=== PATIENT | male | born 1975 | race Caucasian/White ===

== ENCOUNTER 2019-02-04 07:50 | Emergency (ER) | payer SELFPAY ==
[~2019-02-04] VITALS: Wt 72.0 kg
[2019-02-04] MEDS ORDERED: SOD CHLORIDE 0.9% 1,000 ML IV STA (07:56)
[2019-02-04] MEDS ORDERED: PHENYLephrine 0.25% 15 ML NAS SPRAY NASAL ONE (08:00)
[2019-02-04] MEDS ORDERED: LORAZEPAM 2 MG INJ IV ONE ×2 (08:00→09:00)
--- NOTE | 2019-02-04 09:54 | ERD ---
ER Documentation Chief Complaint Chief Complaint BIB RA, EPISTAXSIS/ TREMORS X THIS AM S/P DRINKING LAST NIGHT HPI 43-year-old male presents by paramedics complaining of epistaxis. Patient states that he drinks heavily. His last drink he reports being last night. He began having shaking and tremors this morning which was then followed by pain atraumatic and nosebleed. He called the paramedics after the nose started to bleed. I have reviewed the emergency management program specialist pre-hospital care. Pre-hospital vital signs were reviewed. Pre-hospital diagnostic tests were reviewed. Upon arrival, patient is a very poor historian providing only limited insight. He is shaky and tremulous. He reports no other drug use. ROS All systems reviewed and are negative except as per history of present illness. PMhx/Soc Medical and Surgical Hx: pt denies Medical Hx, pt denies Surgical Hx History of Surgery: No Anesthesia Reaction: No Hx Neurological Disorder: No Hx Respiratory Disorders: No Hx Cardiac Disorders: No Hx Psychiatric Problems: No Hx Miscellaneous Medical Probl: No Hx Alcohol Use: Yes (EVERDAY) Hx Substance Use: No Hx Tobacco Use: Yes Smoking Status: Light tobacco smoker Physical Exam Vitals Vital Signs Date Temp Pulse Resp B/P (MAP) Pulse Ox O2 O2 Flow FiO2 Time Delivery Rate 02/04/19 98.2 99 18 146/105 100 07:55 (119) Physical Exam GENERAL: Poor hygiene. HEENT: Pupils equal, round, and reactive to light. EOMI. There is no scleral icterus. No obvious facial trauma. There is a slow drip from the right nare of blood. NECK: C-spine is soft and supple, there is no meningismus. There is no cervical lymphadenopathy. LUNGS: Clear to auscultation bilaterally. There are no rales, wheezes or rhonchi. HEART: Regular rate and rhythm, no murmurs, clicks, rubs or gallops. ABDOMEN: Soft, non-tender, non-distended. There are bowel sounds in all four quadrants. No rebound or guarding. EXTREMITIES: There is no peripheral cyanosis or edema. No focal swelling or erythema. NEURO: The patient moves all four extremities with 5/5 strength. Cranial nerves II - XII are intact. Normal gait. Alert but with limited insight. He appears to be questionably altered. He has a significant resting tremor. SKIN: There is no apparent rash or petechiae. HEME/LYMPHATIC: There is no evidence of excessive bruising or lymphedema. PSYCHIATRIC: The patient does not appear anxious or depressed. Result Diagram: 02/04/1980502/04/19805 Results 24 hrs Laboratory Tests Test 02/04/19 08:06 White Blood Count 8.3 10^3/ul Red Blood Count 3.60 10^6/ul Hemoglobin 11.5 g/dl Hematocrit 34.0 % Mean Corpuscular Volume 94.4 fl Mean Corpuscular Hemoglobin 31.9 pg Mean Corpuscular Hemoglobin Concent 33.8 g/dl Red Cell Distribution Width 12.3 % Platelet Count 87 10^3/UL Mean Platelet Volume 10.6 fl Immature Granulocytes % 0.500 % Neutrophils % 88.6 % Lymphocytes % 5.9 % Monocytes % 4.6 % Eosinophils % 0.2 % Basophils % 0.2 % Nucleated Red Blood Cells % 0.0 /100WBC Immature Granulocytes # 0.040 10^3/ul Neutrophils # 7.3 10^3/ul Lymphocytes # 0.5 10^3/ul Monocytes # 0.4 10^3/ul Eosinophils # 0.0 10^3/ul Basophils # 0.0 10^3/ul Nucleated Red Blood Cells # 0.0 10^3/ul Prothrombin Time 12.9 Sec Prothrombin Time Ratio 1.0 INR International Normalized Ratio 0.96 Activated Partial Thromboplast Time 24.3 Sec Sodium Level 140 mmol/L Potassium Level 3.8 mmol/L Chloride Level 99 mmol/L Carbon Dioxide Level 27 mmol/L Anion Gap 14 Blood Urea Nitrogen 12 mg/dl Creatinine 0.72 mg/dl Est Glomerular Filtrat Rate mL/min > 60 mL/min Glucose Level 209 mg/dl Calcium Level 9.6 mg/dl Total Bilirubin 1.2 mg/dl Direct Bilirubin 0.00 mg/dl Indirect Bilirubin 1.2 mg/dl Aspartate Amino Transf (AST/SGOT) 239 IU/L Alanine Aminotransferase (ALT/SGPT) 114 IU/L Alkaline Phosphatase 144 IU/L Total Protein 8.1 g/dl Albumin 4.8 g/dl Globulin 3.30 g/dl Albumin/Globulin Ratio 1.45 Lipase 109 U/L Current Medications Medications Dose Sig/Abner Start Time Status Last (Trade) Ordered Route PRN Stop Time Admin Dose Reason Admin Sodium 1,000 ml @ Q1H STAT 5/24/19 DC 02/04/19 Chloride 1,000 mls/hr IV 07:56 08:10 02/04/19 08:55 Lorazepam 1 mg ONCE ONCE 02/04/19 DC 02/04/19 (Ativan) IV 08:00 08:10 02/04/19 08:01 1 spray ONCE ONCE 02/04/19 DC 02/04/19 Phenylephrine NASAL 08:00 08:51 HCl 02/04/19 08:01 (James-Synephri ne 0.25% [place]) Lorazepam 1 mg ONCE ONCE 02/04/19 DC 02/04/19 (Ativan) IV 09:00 08:58 02/04/19 09:01 Procedures/MDM Patient was taken to a room, seen and evaluated. Comfort measures were init iated. Diagnostic tests were ordered and reviewed. 3 LEAD RHYTHM STRIP: Normal sinus rhythm without ectopy CONSULTATION: Hospitalist was notified for admission REEVALUATION: 0950: Diagnostic tests were appreciated. After the Afrin spray, no significant further epistaxis was noted. His tremor continued and I was worried about his ongoing mental status to the point where I felt that he requir ed inpatient admission for IV fluids and benzodiazepine treatment, which were initiated and continued in the emergency room MEDICAL DECISION MAKIN-year-old male presents with a episode of epistaxis. Patient's hemoglobin is normal and the bleeding is been easily controlled. More concerning is what appears to be a significant alcohol withdrawal syndrome. Patient has been given fluids and IV benzodiazepines but will require ongoing inpatient care with a high CIWA score and no ability to care for this as an outpatient. Departure Diagnosis: Primary Impression: Epistaxis Additional Impression: Alcohol withdrawal Condition: TIMOTEO Rodas February 04, 2019 09:54
[2019-02-04] MEDS ORDERED: ONDANSETRON 4 MG INJ IV PRN (10:00)
[2019-02-04] MEDS ORDERED: ACETAMINOPHEN 325 MG TAB PO PRN (10:00)
[2019-02-04 12:00] VITALS: BP 119/83; PULSE 91; RESP 15
[2019-02-04] MEDS ORDERED: FOLI-49 PO (14:10)
[2019-02-04] MEDS ORDERED: MULTI PO (14:10)
[2019-02-04] MEDS ORDERED: THIA100T56 PO (14:10)
[2019-02-04] MEDS ORDERED: CHLO25CA9 PO (14:12)
--- NOTE | 2019-02-04 14:26 | PDOCDIS ---
Discharge Instructions CONDITION [id number] Patient Condition: [id number] Stable ACTIVITY: [id number] Activity Restrictions: Pogur9v Slowly Increase Activity Rest between Activity [id number] Activity Restrictions Comment: [id number] fall precautions OTHER ORDERS: Other Orders: Please stop smoking. If you have already stopped, Good for you!!!. It is however an ongoing process. If you need help or resources, please let someone know before you leave. We are here to help you. It has been associated with a lot of disease processes and is not favourable for healing. Por favor deje de fumar y abusar del alcohol. Si ya te has detenido, engel para ti!!!. Sin embargo, es un proceso continuo. Si necesita ayuda o recursos, por favor, deje que alguien lo sepa antes de irse. Estamos aqu para ayudarle. Se linda asociado con ender gran cantidad de procesos de la enfermedad e incluso la muerte y no es favorable para la curacin. ZENY GHOSH February 04, 2019 14:22
[2019-02-04] MEDS ORDERED: FOLIC ACID 1 MG TAB PO SCH (14:30)
[2019-02-04] MEDS ORDERED: SOD CHLORIDE 0.9% 1,000 ML IV ONE (14:30)
[2019-02-04] MEDS ORDERED: THIAMINE 100 MG TAB PO ONE (14:30)
[2019-02-04] MEDS ORDERED: MULTIVITAMINS THERAPEUTIC TAB PO SCH (14:30)
--- NOTE | 2019-02-04 14:36 | CONS ---
Assessment/Plan Assessment/Plan Assessment/Plan (Daily) 43-year-old male for whom we were originally consulted for inpatient admission for alcohol withdrawal who seems to have done extremely well with emergency room interventions. Patient had originally presented with epistaxis, but this was treated with Afrin spray with resolution. At this time is my opinion that the patient is stable for discharge and outpatient continued follow-up. He still a little bit shaky, so we will make sure that he can eat and ambulate without difficulty prior to discharge. If the patient can be ambulant, and is able to tolerate a diet, the patient can be discharged to his own home without concern for fall in stable condition. Patient will be giving a prescription for Librium therapy as well as multivitamin, folic acid, and thiamine for maintenance. The patient was extensively counseled against continued alcohol abuse. advisory services associate will provide resources. Patient is willing to use the resources. Was also counseled about the need to quit tobacco use. Patient reported that he will try. He was also encouraged to pick a primary care doctor and schedule a follow-up appointment with them. I explained to the patient that continued alcohol and tobacco abuse run the risk of severe diseases even and poor quality of life. Patient verbalized understanding. Disposition: -Ambulate patient, feed patient, if patient does well, he can be discharged home. Patient encouraged to drink lots of water. Consultation Date/Type/Reason Admit Date/Time Date/Time of Note DATE: 02/04/19 TIME: 14:30 Hx of Present Illness This is a 43-year-old male who was brought in by paramedics because of epista xis. The patient is a chronic alcoholic, beer is his drink of choice. The patient denies being an alcoholic however. He tells me he drinks only couple of days a week sometimes 4 days a week. He was however drinking on the last night and this morning woke up with shakes and tremors and sudden nosebleed. He tried to control the nosebleed with pressure but when that did not work he called the paramedics. He was brought to the emergency room where he was found to have poor hygiene and was very shaky and tremulous. He was treated with aggressive fluid hydration, he got Afrin spray but effectively resolved epistaxis. After the initial emergency room evaluation, the emergency room physician was concerned about tremors and decided to admit the patient for EtOH intoxication versus withdrawal. However at this time, I have just evaluated the patient. The patient is fully oriented, able to give me detailed history, epistaxis is resolved. He still has some minor shakes, but he is able to hold a pen, patient feels he is able to ambulate without difficulty, he denies any pain, and epista xis is resolved. The patient is amenable to being discharged. When asked about possibility of drinking again he tells me he does not have alcohol problems. He is open however to enrolling at the [employer] Anonymous. He denies chest pain at this time, denies dizziness, denies shortness of breath. He also denies abdominal pain, denies melena. He also denies dysuria or hematuria. Past medical history: none Past surgical history: patient denies allergies: patient denies 12 point review if systems was done and pertinent findings are as noted. Past Medical History Medical History: no pertinent history Home Meds Active Scripts Chlordiazepoxide* (Chlordiazepoxide*) 25 Mg Capsule, 25 MG PO Q6 for 3 Days, #12 CAP Prov:ZENY GHOSH. 02/04/19 Thiamine* (Vitamin B-1*) 100 Mg Tablet, 100 MG PO ONCE, #30 TAB 2 Refills Prov:ZENY GHOSH. 02/04/19 Multivitamins* (Theragran*) 1 Tab Tab, 1 TAB PO DAILY, #30 TAB 2 Refills Prov:ZENY GHOSH. 02/04/19 Folic Acid* (Folic Acid*) 1 Mg Tablet, 1 MG PO DAILY for 30 Days, #30 TAB 2 Refills Prov:ZENY GHOSH. 02/04/19 Medications Current Medications Ondansetron HCl (Zofran Inj) 4 mg BRIDGE ORDER PRN IV NAUSEA/VOMITING; Start 02/04/19 at 10:00; Stop 02/05/19 at 09:59 Acetaminophen (Tylenol Tab) 650 mg ER BRIDGE PRN PO .MILD PAIN 1-3 OR TEMP; Start 02/04/19 at 10:00; Stop 02/05/19 at 09:59 Sodium Chloride 1,000 ml @ 1,000 mls/hr Q1H ONCE IV ; Start 02/04/19 at 14:30; Stop 02/04/19 at 15:29 Folic Acid (Folic Acid) 1 mg DAILY PO ; Start 02/04/19 at 14:30 Multivitamins Therapeutic (Theragran) 1 tab DAILY PO ; Start 02/04/19 at 14:30 Thiamine HCl (Vitamin B1) 100 mg ONCE ONCE PO ; Start 02/04/19 at 14:30; Stop 02/04/19 at 14:31 Allergies: Coded Allergies: No Known Allergy (Unverified , 02/04/19) Past Surgical History Past Surgical Hx: no surgical history Family History Significant Family History: no pertinent family hx Social History Alcohol Use: heavy Smoking Status: Current every day smoker Drug Use: none Exam/Review of Systems Exam Vitals Vital Signs Date Temp Pulse Resp B/P (MAP) Pulse Ox O2 O2 Flow FiO2 Time Delivery Rate 02/04/19 91 15 119/83 100 Room Air 12:00 (95) 02/04/19 98.2 07:55 Constitutional: alert, other (looks like stated age); No distress Psych: nl mood/affect; No anxiety, No suicidal Head: normocephalic, atraumatic Eyes: PERRL, icteric (mild) Neck: supple, non-tender Respiratory: clear to auscultation Cardiovascular: regular rate and rhythm, nl pulses; No murmurs/extra sounds Gastrointestinal: soft, non-tender, bowel sounds Extremities: No edema Neurological: nl mental status, other (mildly trmulous); No focal weakness Results Result Diagram: 02/04/19 0806 02/04/19 0806 Results 24hrs Laboratory Tests Test 02/04/19 08:06 White Blood Count 8.3 Red Blood Count 3.60 L Hemoglobin 11.5 L Hematocrit 34.0 L Mean Corpuscular Volume 94.4 Mean Corpuscular Hemoglobin 31.9 Mean Corpuscular Hemoglobin Concent 33.8 Red Cell Distribution Width 12.3 Platelet Count 87 L Mean Platelet Volume 10.6 H Immature Granulocytes % 0.500 H Neutrophils % 88.6 H Lymphocytes % 5.9 L Monocytes % 4.6 Eosinophils % 0.2 Basophils % 0.2 Nucleated Red Blood Cells % 0.0 Immature Granulocytes # 0.040 H Neutrophils # 7.3 Lymphocytes # 0.5 L Monocytes # 0.4 Eosinophils # 0.0 Basophils # 0.0 Nucleated Red Blood Cells # 0.0 Prothrombin Time 12.9 Prothrombin Time Ratio 1.0 INR International Normalized Ratio 0.96 Activated Partial Thromboplast Time 24.3 Sodium Level 140 Potassium Level 3.8 Chloride Level 99 Carbon Dioxide Level 27 Anion Gap 14 H Blood Urea Nitrogen 12 Creatinine 0.72 Est Glomerular Filtrat Rate mL/min > 60 Glucose Level 209 Calcium Level 9.6 Total Bilirubin 1.2 Direct Bilirubin 0.00 Indirect Bilirubin 1.2 H Aspartate Amino Transf (AST/SGOT) 239 H Alanine Aminotransferase (ALT/SGPT) 114 H Alkaline Phosphatase 144 H Total Protein 8.1 Albumin 4.8 Globulin 3.30 H Albumin/Globulin Ratio 1.45 Lipase 109 Medications Medication Current Medications Ondansetron HCl (Zofran Inj) 4 mg BRIDGE ORDER PRN IV NAUSEA/VOMITING; Start 02/04/19 at 10:00; Stop 02/05/19 at 09:59 Acetaminophen (Tylenol Tab) 650 mg ER BRIDGE PRN PO .MILD PAIN 1-3 OR TEMP; Sta rt 02/04/19 at 10:00; Stop 02/05/19 at 09:59 Sodium Chloride 1,000 ml @ 1,000 mls/hr Q1H ONCE IV ; Start 02/04/19 at 14:30; Stop 02/04/19 at 15:29 Folic Acid (Folic Acid) 1 mg DAILY PO ; Start 02/04/19 at 14:30 Multivitamins Therapeutic (Theragran) 1 tab DAILY PO ; Start 02/04/19 at 14:30 Thiamine HCl (Vitamin B1) 100 mg ONCE ONCE PO ; Start 02/04/19 at 14:30; Stop 02/04/19 at 14:31 ZENY GHOSH February 04, 2019 14:36
== END 2019-02-04 14:53 | disposition left against medical advice (07) ==
LOC: EDBD 07:50 → E/R 07:50 → CANRESERV 13:55 → SUATTDRO 14:05 → E/R 14:53 → CANBEDREQ 20:34
PROVIDERS: ATTEND Family Medicine
DX: R04.0 Epistaxis (principal); F17.210 Nicotine dependence, cigarettes, uncomplicated; F10.239 Alcohol dependence with withdrawal, unspecified
CPT/HCPCS: 36415; 80053; 83690; 85025; 85610; 85730; 96374; 96376; 99284; J2060; J7030

== ENCOUNTER 2019-02-05 23:08 | Emergency (ER) | payer SELFPAY ==
[~2019-02-05] VITALS: Ht 160 cm; Wt 64.3 kg
[~2019-02-05 23:08] MED LIST: CHLO25CA9 PO; FOLI-49 PO; MULTI PO; THIA100T56 PO
[2019-02-05 23:11] VITALS: Ht 160 cm; Wt 64.3 kg
[2019-02-05] MEDS ORDERED: MAGNESIUM SULFATE 2 GM, MULTIVITAMINS 10 ML, THIAMINE 100 MG, FOLIC ACID 1 MG in SOD CH... IV STA (23:47)
--- NOTE | 2019-02-06 02:32 | ERD ---
ER Documentation Chief Complaint Chief Complaint nosebleed x 1 hour HPI This is a 43-year-old male with a past medical history of alcohol abuse, cirrhosis who is presenting with a nontraumatic left-sided nosebleed that began approximately 1 hour prior to arrival. The patient was seen several days ago for similar symptoms in addition to alcohol withdrawal. He was provided prescriptions of Librium, thiamine, folate and multivitamins and discharged with resources to follow-up. The patient reports continuing to drink, but his pr imary reason for coming today was his nosebleed. He reports last drinking yesterday. He does feel a little anxious, tremulous and was diaphoretic in the room. The patient denies feeling sick recently. The patient denies fever or chills. The patient has had no headache or vision changes. The patient does not endorse neck or back pain. The patient denies lightheadedness or dizziness. The patient has had no chest pain or trouble breathing. The patient denies nausea or vomiting. The patient denies abdominal pain. The patient denies changes to bowel movements or urination. The patient has had no focal deficits. The patient has had no weakness or numbness or tingling to the face or extremities. ROS All systems reviewed and are negative except as per history of present illness. Medications Home Meds Active Scripts Chlordiazepoxide* (Chlordiazepoxide*) 25 Mg Capsule, 25 MG PO Q6 for 3 Days, #12 CAP Prov:AUGIE,BOLATITO M. 02/04/19 Thiamine* (Vitamin B-1*) 100 Mg Tablet, 100 MG PO ONCE, #30 TAB 2 Refills Prov:AUGIE,BOLATITO M. 02/04/19 Multivitamins* (Theragran*) 1 Tab Tab, 1 TAB PO DAILY, #30 TAB 2 Refills Prov:AUGIE,BOLATITO M. 02/04/19 Folic Acid* (Folic Acid*) 1 Mg Tablet, 1 MG PO DAILY for 30 Days, #30 TAB 2 Refills Prov:AUGIE,BOLATITO M. 02/04/19 Allergies Allergies: Coded Allergies: No Known Allergy (Unverified , 02/04/19) PMhx/Soc History of Surgery: No Anesthesia Reaction: No Hx Neurological Disorder: No Hx Respiratory Disorders: No Hx Cardiac Disorders: No Hx Psychiatric Problems: No Hx Miscellaneous Medical Probl: No Hx Alcohol Use: Yes (EVERDAY) Hx Substance Use: No Hx Tobacco Use: Yes Smoking Status: Current every day smoker FmHx Family History: No diabetes Physical Exam Vitals Vital Signs Date Temp Pulse Resp B/P (MAP) Pulse Ox O2 O2 Flow FiO2 Time Delivery Rate 02/06/19 78 16 133/97 100 Room Air 00:54 (109) 02/05/19 99.3 117 20 152/103 100 23:11 (119) Physical Exam Const: No apparent distress, well-developed, well-nourished Head: Normocephalic, Atraumatic Eyes: Normal Conjunctiva. Extraocular movements intact. Pupils equal, round and reactive to light ENT: Normal External Ears and Mouth. Left nose epistaxis. Neck: Full range of motion. No meningismus. Resp: Clear to auscultation bilaterally, No wheezes, rales or rhonchi Cardio: Regular rate and rhythm. No murmurs, rubs or gallops Abd: Soft, non tender, non distended. Normal bowel sounds Skin: No petechiae or rashes Back: No midline tenderness. No CVA tenderness Ext: No cyanosis, or edema Neur: Awake and alert, oriented 4. Cranial nerves intact. No facial droop. Normal strength, sensation and coordination. Tremulous. Psych: Anxious. Result Diagram: 02/05/19234902/05/192349 Results 24 hrs Laboratory Tests Test 02/05/19 23:50 White Blood Count 7.5 10^3/ul Red Blood Count 3.26 10^6/ul Hemoglobin 10.3 g/dl Hematocrit 30.3 % Mean Corpuscular Volume 92.9 fl Mean Corpuscular Hemoglobin 31.6 pg Mean Corpuscular Hemoglobin Concent 34.0 g/dl Red Cell Distribution Width 11.9 % Platelet Count 80 10^3/UL Mean Platelet Volume 11.7 fl Immature Granulocytes % 0.400 % Neutrophils % 84.7 % Lymphocytes % 6.4 % Monocytes % 7.4 % Eosinophils % 0.8 % Basophils % 0.3 % Nucleated Red Blood Cells % 0.0 /100WBC Immature Granulocytes # 0.030 10^3/ul Neutrophils # 6.3 10^3/ul Lymphocytes # 0.5 10^3/ul Monocytes # 0.6 10^3/ul Eosinophils # 0.1 10^3/ul Basophils # 0.0 10^3/ul Nucleated Red Blood Cells # 0.0 10^3/ul Prothrombin Time 12.9 Sec Prothrombin Time Ratio 1.0 INR International Normalized Ratio 0.96 Sodium Level 137 mmol/L Potassium Level 3.5 mmol/L Chloride Level 101 mmol/L Carbon Dioxide Level 29 mmol/L Anion Gap 7 Blood Urea Nitrogen 13 mg/dl Creatinine 0.73 mg/dl Est Glomerular Filtrat Rate mL/min > 60 mL/min Glucose Level 146 mg/dl Calcium Level 9.1 mg/dl Total Bilirubin 0.8 mg/dl Direct Bilirubin 0.00 mg/dl Indirect Bilirubin 0.8 mg/dl Aspartate Amino Transf (AST/SGOT) 330 IU/L Alanine Aminotransferase (ALT/SGPT) 170 IU/L Alkaline Phosphatase 136 IU/L Total Protein 7.7 g/dl Albumin 4.6 g/dl Globulin 3.10 g/dl Albumin/Globulin Ratio 1.48 Ethyl Alcohol Level < 10.0 mg/dl Current Medications Medications Dose Sig/Abner Start Time Status Last (Trade) Ordered Route PRN Stop Time Admin Dose Reason Admin Magnesium 1,015.2 ml Q2H2M STAT 02/05/19 DC 02/06/19 Sulfate 2 @ 500 mls/ IV 23:47 00:16 gm/ hr 02/06/19 01:48 Multivitamins 10 ml/Thiamine HCl 100 mg/Folic Acid 1 mg/Sodium Chloride Procedures/MDM MDM The patient's presentation warrants further investigation. Previous medical rec ords, if available, were reviewed. LABS The patient's laboratory testing was obtained and reviewed. No emergent treatment was required unless described below. CBC: No E/o systemic infection. Anemia and thrombocytopenia in line with chronic liver disease. Chemistry: No E/o severe acidosis or alkalosis or renal failure or diabetic ketoacidosis. Transaminitis in line with chronic alcoholic liver disease PT/INR: No E/o significant coagulopathy EKG EKG read by me: Rate/Rhythm: Regular rate and rhythm at a rate of 92 bpm Intervals: Normal [place]: Normal Impression: No evidence of acute ischemia or arrhythmia TREATMENT/DISPOSITION The patient presents for epistaxis. Nasal packing was placed for approximately 1 hour and subsequently removed with resolution of his bleeding. The patient was observed after removal with no subsequent bleeding episodes. There is no area to cauterize. The patient also presents with symptoms potentially concerning for alcohol withdrawal. He was given a banana bag in the emergency department. The patient reports that after his epistaxis resolved, he actually felt much improved. I do not see evidence of emergent alcohol withdrawal currently. The patient also has medications to help with withdrawal symptoms in order to prevent an alcohol withdrawal related seizure. He was advised counseled on alcohol cessation. The patient was again offered resources for alcohol rehabilitation. The patient was informed of his sequelae from alcoholic liver disease. DISCHARGE Upon reevaluation of the patient, symptoms have improved. No emergent diagnoses were identified. At this time, I feel that the patient stable for discharge. The patient was instructed to follow-up with a primary care physician in 1-3 days. The patient will be given strict precautions with which to return to the emergency department. Prescriptions: None The patient's blood pressure was elevated at greater than 120/80 while in the emergency department. The patient was otherwise stable with no evidence of hypertensive urgency or emergency. The patient does not require admission for blood pressure control. I have discussed with the patient the risks of hypertension. I have instructed the patient to return to the ER for any new or worsening symptoms including chest pain, shortness of breath, headache, blurred vision, confusion, nausea, vomiting or LOC. I have advised the patient to follow up with the primary care physician for outpatient monitoring and treatment for hypertension in 1-3 days. Disclaimer: Inadvertent spelling and grammatical errors are likely due to EHR/dictation software use and do not reflect on the overall quality of patient care. Note that the electronic time recorded on this note does not necessarily reflect the actual time of the patient encounter. Departure Diagnosis: Primary Impression: Epistaxis Additional Impressions: Alcohol withdrawal Complication of substance-induced condition: uncomplicated Qualified Codes: F10.230 - Alcohol dependence with withdrawal, uncomplicated Alcoholic liver disease Normocytic anemia Thrombocytopenia Transaminitis Condition: Stable Patient Instructions: Alcohol Withdrawal, Cirrhosis, Epistaxis (Adult) Additional Instructions: Thank you for for coming to [facility] for your care today. Please ask your nurse or provider if you have questions about your care today and do not leave until all your questions have been answered. Please use any medications given as directed and follow-up with your doctor (or the doctor you were referred to) in the next 1-3 days. If you do not have a primary care doctor you may follow up at the [facility] or community clinic (listed below). You may also use motrin and tylenol as needed for fever and/or pain unless instructed otherwise by your provider or nurse. Indications for more urgent follow-up have been discussed, but you may return to the Emergency Department at ANY time for any worrisome or worsening symptoms. If you have abdominal pain, please know that no test or exam you received is perfect and you should follow up within 8 hours for continued pain. If you had any imaging studies today, such as an X-Ray or CT Scan, these studies will be reviewed later by a radiologist. You will be called if there are important findings that were not identified today, so make sure the contact information you provided at registration is correct. If you received any narcotic pain control medicine today, such as Vicodin, Morp leann or Dilaudid, your coordination and judgment may be affected for a number of hours. Please do not drive or operate heavy machinery, and you may want someone to assist you at home. If you were given a prescription for narcotic medication, be aware that it is very addictive- use sparingly and only if necessary. PLEASE SEEK FURTHER EVALUATION AND MANAGEMENT AT YOUR DOCTORS OFFICE WITHIN THE NEXT 1-3 DAYS. IT IS YOUR RESPONSIBILITY TO MAKE AN APPOINTMENT FOR FOLOW-UP CARE. IF YOU HAVE A PRIMARY DOCTOR, PLEASE CALL THEIR OFFICE TO SCHEDULE AN APPOINTMENT FOR FOLLOW UP. IF YOU DO NOT HAVE A PRIMARY DOCTOR YOU CAN CALL OUR PHYSICIAN REFERRAL HOTLINE AT IF YOU CAN NOT AFFORD TO SEE A PHYSICIAN YOU CAN CHOSE FROM THE FOLLOWING [facility] CLINICS: [facility] [address] [facility]. [facility] [address] [facility] [facility] [address] [facility]. [facility] [address] [facility] [address] [facility]. [facility]. [address] SHAYAN VELASCO MD February 06, 2019 02:31
[2019-02-06 02:55] VITALS: BP 126/98; PULSE 79; RESP 16
== END 2019-02-06 03:03 | disposition home or self-care (01) ==
LOC: E/R 23:08
DX: R04.0 Epistaxis (principal); F17.210 Nicotine dependence, cigarettes, uncomplicated; F10.230 Alcohol dependence with withdrawal, uncomplicated; D64.9 Anemia, unspecified; D69.6 Thrombocytopenia, unspecified; R74.0 Nonspecific elevation of levels of transaminase and lactic acid dehydrogenase [LDH]; K70.9 Alcoholic liver disease, unspecified
CPT/HCPCS: 30901; 80053; 80307; 85025; 85610; J3411; J3475; J7030; 36415; 93005; 96374